=== PATIENT | male | born 1940 | race Hispanic/Latino ===

== ENCOUNTER → 2023-10-29 | Outpatient (CLI) | payer SELFPAY | END | disposition home or self-care (01) | LOC: RAH 13:08 | PROVIDERS: ATTEND Internal Medicine | DX: Z13.6 Encounter for screening for cardiovascular disorders (principal) | CPT/HCPCS: 75571 ==

== ENCOUNTER → 2023-11-19 | Outpatient (CLI) | payer MEDICARE | END | disposition home or self-care (01) | LOC: SHCH 14:48 | PROVIDERS: ATTEND Internal Medicine | DX: I07.1 Rheumatic tricuspid insufficiency (principal); I16.0 Hypertensive urgency; I10 Essential (primary) hypertension | CPT/HCPCS: 93306 ==